=== PATIENT | female | born 1935 | race Caucasian/White ===

== ENCOUNTER 2017-03-02 19:30 | Emergency (ER) | payer OTHER ==
[~2017-03-02] VITALS: Ht 165.1 cm; Wt 87.5 kg
[2017-03-02 20:14] LABS: Basophils # (auto) 0 uL; Basophils % (auto) 0.1 % (0.0-2.0); Eosinophils # (auto) 0 uL; Eosinophils % (auto) 0.1 % (0.0-7.0); Hematocrit 33.7 % (36.0-46.0); Hemoglobin 11.4 g/dL (12.2-16.2); Lymphocytes # (auto) 1.2 uL; Lymphocytes % (auto) 20.5 % (10.0-50.0); Mean Corpuscular Hemoglobin 29.9 pg (28.0-32.0); Mean Corpuscular Hgb Conc. 33.8 g/dL (32.0-36.0); Mean Corpuscular Volume 88.6 fL (80.0-100.0); Monocytes # (auto) 0.4 uL; Monocytes % (auto) 6.9 % (0.0-12.0); Neutrophils # (auto) 4.1 uL; Neutrophils % (auto) 72.4 % (37.0-80.0); Platelet Count (auto) 197 10^3/uL (140-450); Red Cell Distribution Width 18.1 % (11.6-16.0); White Blood Cell 5.7 10^3/uL (4.4-10.8)
[2017-03-02 20:27] LABS: INR 1.04 (0.9-1.15); Partial Thromboplastin Time 22.9 sec (22.64-33.71); Prothrombin Time 11.2 sec (9.37-12.3)
[2017-03-02 20:43] LABS: Albumin 3.9 g/dL (3.4-5.0); Alkaline Phosphatase 42 U/L (45-117); Anion Gap 7 (5-15); Aspartate Aminotransferase 15 U/L (15-37); B-Type Natriuretic Peptide 71.41 pg/mL (0-100); BUN/Creatinine Ratio 18.9; Bilirubin, Total 0.5 mg/dL (0.2-1.0); Blood Urea Nitrogen 20 mg/dL (7-18); Calcium 9.1 mg/dL (8.5-10.1); Carbon Dioxide 27 mmol/L (21-32); Chloride 107 mmol/L (98-107); GFR African American 64 mL/min; GFR Non-African American 53 mL/min; Glucose 161 mg/dL (74-106); Magnesium 2.3 mg/dL (1.6-2.6); Potassium 4.8 mmol/L (3.5-5.1); Sodium 141 mmol/L (136-145); Total Protein 7.3 g/dL (6.4-8.2)
[2017-03-02 20:57] LABS: Temperature: 22.9 C (20.0-25.0)
[2017-03-02 22:27] LABS: Urine Bilirubin Negative (Negative); Urine Blood Negative /uL (Negative); Urine Color Colorless (Yellow); Urine Glucose Normal (Normal); Urine Ketone Negative (Negative); Urine RBC <1 /hpf (0 - 4); Urine Squamous Epithelial Cell FEW /hpf (<5); Urine Urobilinogen Normal (Negative); Urine pH 5.5 (5.0-8.0)
[2017-03-02 22:28] LABS: Urine Nitrite POSITIVE (Negative)
[2017-03-02 23:04] VITALS: BP 143/79
== END 2017-03-03 01:58 | disposition home or self-care (01) ==
LOC: EDBD 19:30 → ER 19:39
DX: R00.2 Palpitations (principal); R42 Dizziness and giddiness; F41.9 Anxiety disorder, unspecified; F09 Unspecified mental disorder due to known physiological condition; M06.9 Rheumatoid arthritis, unspecified; I11.0 Hypertensive heart disease with heart failure; I50.9 Heart failure, unspecified; E78.5 Hyperlipidemia, unspecified
CPT/HCPCS: 36415; 70450; 71010; 80053; 81001; 83735; 83880; 84443; 84484; 85025; 85379; 85610; 85730; 93005; 94761

== ENCOUNTER 2017-04-10 01:24 | Emergency (ER) | payer OTHER ==
[~2017-04-10] VITALS: Ht 170.2 cm; Wt 86.6 kg
[2017-04-10] MEDS ORDERED: cefTRIAXone 1GM/50ML D5W 50 ML IV ONE (03:45)
[2017-04-10] MEDS ORDERED: ALBUTEROL SULF 2.5 MG/0.5ML(0.5%) NEB SOLN NEB ONE (03:45)
[2017-04-10] MEDS ORDERED: IPRATROPIUM BROM 0.5 MG/2.5ML INH SOL NEB ONE (03:45)
[2017-04-10 03:59] LABS: Hematocrit 28.5 % (36.0-46.0); Hemoglobin 9.8 g/dL (12.2-16.2); Mean Corpuscular Hgb Conc. 34.2 g/dL (32.0-36.0); Mean Corpuscular Volume 90.7 fL (80.0-100.0); Mean Platelet Volume 10.1 fL (7.4-10.4); Platelet Count (auto) 175 10^3/uL (140-450); Red Cell Distribution Width 17.7 % (11.6-16.0); SUSPECT VIEW TRANSMISSION; White Blood Cell 4.1 10^3/uL (4.4-10.8)
[2017-04-10 04:06] LABS: Metamyelocytes % 0; Myelocytes % 0; Promyelocytes % 0; Reactive Lymphocytes 0
[2017-04-10 04:08] LABS: Albumin 3.2 g/dL (3.4-5.0); Anion Gap 9 (5-15); Aspartate Aminotransferase 10 U/L (15-37); BUN/Creatinine Ratio 22.3; Blood Urea Nitrogen 42 mg/dL (7-18); Calcium 8.7 mg/dL (8.5-10.1); Carbon Dioxide 25 mmol/L (21-32); Chloride 105 mmol/L (98-107); GFR African American 33 mL/min; GFR Non-African American 27 mL/min; Glucose 99 mg/dL (74-106); Magnesium 2.1 mg/dL (1.6-2.6); Potassium 4.8 mmol/L (3.5-5.1); Sodium 139 mmol/L (136-145)
[2017-04-10 04:11] LABS: Platelet Estimate Adequate
[2017-04-10 04:12] LABS: Anisocytosis Slight
[2017-04-10 04:13] LABS: Alkaline Phosphatase 42 U/L (45-117); Bilirubin, Total 0.7 mg/dL (0.2-1.0); INR 1.09 (0.9-1.15); Ovalocytes FEW; Partial Thromboplastin Time 28.9 sec (22.64-33.71); Prothrombin Time 11.9 sec (9.37-12.3); Total Protein 6.5 g/dL (6.4-8.2)
[2017-04-10] MEDS ORDERED: ATO40T PO (06:03)
[2017-04-10] MEDS ORDERED: LEVO137T3 PO (06:03)
[2017-04-10] MEDS ORDERED: PRE5T GT (06:04)
[2017-04-10] MEDS ORDERED: NOR5T PO (06:05)
[2017-04-10] MEDS ORDERED: METH118C PO (06:07)
[2017-04-10] MEDS ORDERED: MEMA1TAB PO (06:08)
[2017-04-10] MEDS ORDERED: LISI40TA PO (06:08)
[2017-04-10] MEDS ORDERED: ALEN70TA55 PO (06:09)
[2017-04-10] MEDS ORDERED: ASPI-231 PO (06:09)
[2017-04-10 06:16] LABS: Temperature: 23.3 C (20.0-25.0)
[2017-04-10 06:28] LABS: Urine Bilirubin Negative (Negative); Urine Blood Negative /uL (Negative); Urine Color Yellow (Yellow); Urine Glucose Normal (Normal); Urine Ketone Negative (Negative); Urine Mucus FEW (None Seen); Urine Nitrite POSITIVE (Negative); Urine RBC 6 /hpf (0 - 4); Urine Urobilinogen Normal (Negative); Urine WBC Clumps PRESENT /hpf (None Seen); Urine pH 5.5 (5.0-8.0)
[2017-04-10 07:45] VITALS: BP 125/89
== END 2017-04-10 08:14 | disposition home or self-care (01) ==
LOC: ER 01:27
DX: J20.9 Acute bronchitis, unspecified (principal); D72.829 Elevated white blood cell count, unspecified; I11.0 Hypertensive heart disease with heart failure; I50.9 Heart failure, unspecified; E78.5 Hyperlipidemia, unspecified; M19.90 Unspecified osteoarthritis, unspecified site; J44.9 Chronic obstructive pulmonary disease, unspecified
CPT/HCPCS: 36415; 51702; 71010; 80053; 81001; 83735; 83880; 84443; 84484; 85007; 85027; 85379; 85610; 85730; 93005; 94640; 96365; 99285; J0696